=== PATIENT | male | born 1935 | race Caucasian/White ===

== ENCOUNTER → 2016-06-14 | Outpatient (CLI) | payer MEDICARE ==
--- NOTE | 2016-06-14 11:46 | REP ---
Right rib series: Five views including PA chest. History: Contusion. Comparison study December 13, 2001. Findings: A right PA chest x-ray shows no evidence of pneumothorax or hydrothorax. Mediastinum is not widened traumatically. Pleural angles are sharp. The aorta is tortuous. Heart size is normal. Lung arroyo are clear. There is a mild levoconvex curve in the thoracic spine. These findings are unchanged. Multiple views of the right rib cage demonstrate cortical irregularity and step-off. The lateral aspect of the right 10th rib which appears old and the posterior segment of the right 7th rib which is indeterminate. Also noted is a step-off of the posterior aspect of the 10th rib on the right also indeterminate. These are new findings compared to the 2001 prior chest x-ray. No other rib fracture is appreciated. There is some diffuse osteopenia. No bony destructive lesion is seen. Impression: Three fractures involving the right 10th and 7th ribs; question old versus new. Correlation with area of point tenderness and history suggested. No pneumothorax, hydrothorax, atelectasis, or contusion seen. Signed by Chaitanya Doan MD 06/14/2016 02:58 P
--- NOTE | 2016-06-14 11:48 | REP ---
Lumbar spine series: Five views. History: Contusion. Findings: Five views of the lumbar spine show preserved vertebral body heights and normal alignment. No fracture or collapse is seen. There is diffuse degenerative disc disease at each level. An arterial stent is seen in place along the course of the right common iliac artery. There are periaortic clips. No fracture or bony destructive lesion is seen. Psoas margins are symmetric. Mild gaseous distension of the colon is seen. Impression: Degenerative disc disease diffusely. No fracture or collapse seen. Right common iliac artery stent noted. Mild gaseous distension of the colon is noted. Signed by Chaitanya Doan MD 06/14/2016 02:58 P
== END ==
LOC: M WUC 10:52
PROVIDERS: ATTEND Physician Assistant
DX: M51.36 Other intervertebral disc degeneration, lumbar region (principal); S22.41XA Multiple fractures of ribs, right side, initial encounter for closed fracture; X58.XXXA Exposure to other specified factors, initial encounter; Y92.89 Other specified places as the place of occurrence of the external cause; Y93.89 Activity, other specified; Y99.8 Other external cause status

== ENCOUNTER → 2017-06-10 | Outpatient (REF) | payer MEDICARE ==
[2017-06-10 15:40] LABS: BASO # 0.1 10^3/uL (0.0-0.2); BASO % 1.2 % (0.0-1.0); EOS # 0.3 10^3/uL (0.0-0.50); EOS % 3.2 % (0.0-3.0); HEMATOCRIT 39.5 % (42.0-52.0); HEMOGLOBIN 13.7 g/dl (14.0-18.0); IMMATURE GRANULOCYTE % 0.2 % (0-0); LYMPH # 2.4 10^3/uL (1.5-4.5); LYMPH % 24.9 % (24.0-44.0); MEAN CORPUSCULAR HGB CONC 34.7 g/dl (32.0-36.5); MEAN CORPUSCULAR VOLUME 92.3 fl (80.0-96.0); MONO % 10.3 % (0.0-5.0); NEUTROPHILS # 5.8 10^3/uL (1.8-7.7); NEUTROPHILS % 60.2 % (36.0-66.0); PLATELET COUNT, AUTOMATED 247 10^3/uL (150-450); RED BLOOD COUNT 4.28 10^6/uL (4.30-6.10); RED CELL DISTRIBUTION WIDTH 12.8 % (11.5-14.5); WHITE BLOOD COUNT 9.7 10^3/uL (4.0-10.0)
[2017-06-10 15:53] LABS: ALBUMIN 3.5 GM/DL (3.2-5.2); ALBUMIN/GLOBULIN RATIO 1.03 (1.00-1.93); ALKALINE PHOSPHATASE 112 U/L (45-117); ALT/SGPT 19 U/L (12-78); AST/SGOT 23 U/L (7-37); BILIRUBIN,DIRECT 0.2 MG/DL (0.0-0.2); BILIRUBIN,TOTAL 0.5 MG/DL (0.2-1.0); TOTAL PROTEIN 6.9 GM/DL (6.4-8.2)
== END ==
LOC: M LABDRAW1 14:36
DX: M47.896 Other spondylosis, lumbar region (principal)
CPT/HCPCS: 80076

== ENCOUNTER → 2018-09-08 | Outpatient (REF) | payer MEDICARE ==
[2018-09-08 16:14] LABS: CREATININE FOR GFR 1.61 MG/DL (0.70-1.30); GLOMERULAR FILTRATION RATE 44.2 (>35)
== END ==
LOC: M LABDRAW1 15:28
PROVIDERS: ATTEND Physician Assistant
DX: M51.36 Other intervertebral disc degeneration, lumbar region (principal)

== ENCOUNTER → 2019-10-14 | Outpatient (CLI) | payer MEDICARE ==
[2019-10-14 13:12] LABS: HEMOGLOBIN 14.6 g/dl (13.5-17.5); MEAN CORPUSCULAR HEMOGLOBIN 32.6 pg (27.0-33.0); MEAN CORPUSCULAR HGB CONC 35.6 g/dl (32.0-36.5); MEAN CORPUSCULAR VOLUME 91.5 fl (80.0-96.0); PLATELET COUNT, AUTOMATED 220 10^3/uL (150-450); RED BLOOD COUNT 4.48 10^6/uL (4.30-6.10); WHITE BLOOD COUNT 9.7 10^3/uL (4.0-10.0)
[2019-10-14 13:38] LABS: ALBUMIN 3.3 GM/DL (3.2-5.2); BILIRUBIN,TOTAL 0.8 MG/DL (0.2-1.0); CALCIUM LEVEL 8.9 MG/DL (8.8-10.2); CHOLESTEROL RISK RATIO 3.323 (<5); CREATININE FOR GFR 1.33 MG/DL (0.70-1.30); GLOMERULAR FILTRATION RATE 54.8 (>35); POTASSIUM SERUM 3.4 MEQ/L (3.5-5.1); TOTAL PROTEIN 6.6 GM/DL (6.4-8.2)
== END ==
LOC: M LAB 12:09
PROVIDERS: ATTEND Physician Assistant
DX: I11.9 Hypertensive heart disease without heart failure (principal); I25.10 Atherosclerotic heart disease of native coronary artery without angina pectoris; E78.00 Pure hypercholesterolemia, unspecified

== ENCOUNTER → 2020-10-17 | Outpatient (CLI) | payer MEDICARE ==
[2020-10-17 12:52] LABS: HEMATOCRIT 45.5 % (42.0-52.0); HEMOGLOBIN 15.6 g/dl (13.5-17.5); MEAN CORPUSCULAR HEMOGLOBIN 31.5 pg (27.0-33.0); MEAN CORPUSCULAR HGB CONC 34.3 g/dl (32.0-36.5); MEAN CORPUSCULAR VOLUME 91.9 fl (80.0-96.0); PLATELET COUNT, AUTOMATED 254 10^3/uL (150-450); RED BLOOD COUNT 4.95 10^6/uL (4.30-6.10)
[2020-10-17 12:56] LABS: ALBUMIN 3.2 GM/DL (3.2-5.2); BILIRUBIN,TOTAL 0.7 MG/DL (0.2-1.0); CALCIUM LEVEL 9.5 MG/DL (8.8-10.2); CHOLESTEROL RISK RATIO 2.921 (<5); CREATININE FOR GFR 1.64 MG/DL (0.70-1.30); GLOMERULAR FILTRATION RATE 42.9 (>35); POTASSIUM SERUM 3.6 MEQ/L (3.5-5.1); TOTAL PROTEIN 6.7 GM/DL (6.4-8.2)
== END ==
LOC: M WUC 10:22
PROVIDERS: ATTEND Physician Assistant
DX: I11.9 Hypertensive heart disease without heart failure (principal); I25.10 Atherosclerotic heart disease of native coronary artery without angina pectoris; E78.00 Pure hypercholesterolemia, unspecified

== ENCOUNTER 2022-05-25 11:28 | Emergency (ER) | payer MEDICARE ==
[~2022-05-25] VITALS: Ht 170.2 cm; Wt 56.8 kg
[2022-05-25] MEDS ORDERED: ATOR40TA75 (12:13)
[2022-05-25] MEDS ORDERED: TAMS1CAP17 (12:13)
[2022-05-25] MEDS ORDERED: ALBU8.5H (12:13)
[2022-05-25] MEDS ORDERED: TRAM50TA2 (12:13)
[2022-05-25] MEDS ORDERED: ELIQ5TAB (12:13)
[2022-05-25] MEDS ORDERED: PANT40TA29 (12:13)
[2022-05-25] MEDS ORDERED: POTA-151 (12:13)
[2022-05-25] MEDS ORDERED: NITR0.4S14 (12:13)
[2022-05-25] MEDS ORDERED: METO50TA7 (12:13)
[2022-05-25] MEDS ORDERED: SPIR12.9 (12:13)
[2022-05-25] MEDS ORDERED: PRED5TA (12:13)
[2022-05-25] MEDS ORDERED: AMLO1TAB24 (12:13)
[2022-05-25 16:30] LABS: BASO # 0.1 10^3/uL (0.0-0.2); BASO % 0.7 % (0.0-1.0); EOS # 0.1 10^3/uL (0.0-0.5); EOS % 1.2 % (0.0-3.0); HEMATOCRIT 25.2 % (42.0-52.0); HEMOGLOBIN 7.5 g/dl (13.5-17.5); LYMPH # 1.7 10^3/uL (1.5-5.0); LYMPH % 20.3 % (24.0-44.0); MEAN CORPUSCULAR HEMOGLOBIN 24.5 pg (27.0-33.0); MEAN CORPUSCULAR HGB CONC 29.8 g/dl (32.0-36.5); MEAN CORPUSCULAR VOLUME 82.4 fl (80.0-96.0); MONO # 1.1 10^3/uL (0.0-0.8); MONO % 12.9 % (2.0-8.0); NEUTROPHILS # 5.3 10^3/uL (1.5-8.5); NEUTROPHILS % 64.5 % (36.0-66.0); PLATELET COUNT, AUTOMATED 277 10^3/uL (150-450); RED BLOOD COUNT 3.06 10^6/uL (4.30-6.10); WHITE BLOOD COUNT 8.2 10^3/uL (4.0-10.0)
[2022-05-25] MEDS ORDERED: NS 500 ML IV ONE (16:45)
[2022-05-25 17:17] LABS: LIPASE 22 U/L (12-53)
[2022-05-25 17:20] LABS: BILIRUBIN,DIRECT 0.5 MG/DL (<0.4); CPK CREATINE PHOSPHOKINASE 65 U/L (46-171)
[2022-05-25 17:21] LABS: ALBUMIN 3.4 G/DL (3.2-5.2); ALKALINE PHOSPHATASE 94 U/L (46-116); ALT/SGPT 12 U/L (7.0-40); AST/SGOT 20 U/L (<34); BILIRUBIN,TOTAL 1.3 MG/DL (0.3-1.2); CK-MB VALUE MASS < 1.0 NG/ML (<3.6); MB/CK RELATIVE INDEX 1.53 (< OR =4); TOTAL PROTEIN 6.6 G/DL (5.7-8.2)
[2022-05-25] MEDS ORDERED: LIDOCAINE 5% (LIDODERM) PATCH TD ONE (17:35)
[2022-05-25] MEDS ORDERED: ACETAMINOPHEN 325 MG TAB PO ONE (17:35)
[2022-05-25] MEDS ORDERED: LIDO5DIS41 TOP (17:37)
[2022-05-25 17:45] VITALS: BP 131/56
== END 2022-05-25 18:05 | disposition home or self-care (01) ==
LOC: M ED 11:28
DX: S22.080A Wedge compression fracture of T11-T12 vertebra, initial encounter for closed fracture (principal); M50.30 Other cervical disc degeneration, unspecified cervical region; M51.36 Other intervertebral disc degeneration, lumbar region; I49.1 Atrial premature depolarization; I25.2 Old myocardial infarction; J44.9 Chronic obstructive pulmonary disease, unspecified; I10 Essential (primary) hypertension; F17.200 Nicotine dependence, unspecified, uncomplicated; Z79.51 Long term (current) use of inhaled steroids; Z79.899 Other long term (current) drug therapy

== ENCOUNTER 2022-05-31 07:28 | Inpatient (IN) | payer MEDICARE ==
[2022-05-31] VITALS (11 sets, daily range): BP systolic 93–132; BP diastolic 51–64
[~2022-05-31 07:28] MED LIST: ALBU8.5H INH; AMLO1TAB24 PO; ATOR40TA75 PO; ELIQ5TAB PO; LIDO5DIS41 TOP; METO50TA7 PO; NITR0.4S14 SL; PANT40TA29 PO; POTA-151 PO; PRED5TA; SPIR12.9 INH; TAMS1CAP17 PO; TRAM50TA2
[2022-05-31] MEDS ORDERED: PANTOPRAZOLE 40MG VIAL IV ONE (07:45)
[2022-05-31 08:02] LABS: VENOUS BASE EXCESS -12.9 (-2.0-2.0); VENOUS O2 SATURATION 86.5 % (60.0-80.0); VENOUS PARTIAL PRESSURE CO2 29.8 mmHg (38.0-50.0); VENOUS PARTIAL PRESSURE O2 65.8 mmHg (30.0-50.0); VENOUS PH 7.258 UNITS (7.330-7.430); VENOUS TOTAL CO2 13.9 MEQ/L (24.0-28.0)
[2022-05-31 08:08] LABS: BASO # 0.1 10^3/uL (0.0-0.2); BASO % 0.2 % (0.0-1.0); LYMPH # 1.2 10^3/uL (1.5-5.0); LYMPH % 4.3 % (24.0-44.0); MEAN CORPUSCULAR HEMOGLOBIN 24.6 pg (27.0-33.0); MEAN CORPUSCULAR HGB CONC 29.5 g/dl (32.0-36.5); MEAN CORPUSCULAR VOLUME 83.5 fl (80.0-96.0); MONO % 7.5 % (2.0-8.0); NEUTROPHILS % 86.7 % (36.0-66.0); PLATELET COUNT, AUTOMATED 300 10^3/uL (150-450); RED BLOOD COUNT 2.48 10^6/uL (4.30-6.10); WHITE BLOOD COUNT 27.7 10^3/uL (4.0-10.0)
[2022-05-31] MEDS ORDERED: METOPROLOL TART 50 MG TAB PO ONE (08:15)
[2022-05-31 08:21] LABS: INR 2.12; PROTHROMBIN TIME 24.1 SECONDS (12.5-14.5)
[2022-05-31 08:27] LABS: BILIRUBIN,DIRECT 0.5 MG/DL (<0.4)
[2022-05-31 08:29] LABS: THYROXINE (T4) 7.3 UG/DL (4.5-10.9)
[2022-05-31 08:30] LABS: THYROID STIMULATING HORMONE 1.684 uIU/ML (0.55-4.78)
[2022-05-31 08:34] LABS: ALBUMIN 2.8 G/DL (3.2-5.2); BILIRUBIN,TOTAL 1.1 MG/DL (0.3-1.2); CALCIUM LEVEL 8.6 MG/DL (8.3-10.6); CREATININE FOR GFR 2.13 MG/DL (0.70-1.30); GLOMERULAR FILTRATION RATE 31.7 (>35); POTASSIUM SERUM 4.3 MMOL/L (3.5-5.1); TOTAL PROTEIN 5.3 G/DL (5.7-8.2)
[2022-05-31 08:46] LABS: RSV AMPLIFICATION NEGATIVE (NEGATIVE)
[2022-05-31 08:57] LABS: HEMATOCRIT 20.7 % (42.0-52.0); HEMOGLOBIN 6.1 g/dl (13.5-17.5)
[2022-05-31 08:58] LABS: MONO # 2.1 10^3/uL (0.0-0.8)
[2022-05-31] MEDS ORDERED: INDA1.253 PO (11:27)
[2022-05-31] MEDS ORDERED: FOLI0.4T5 PO (11:27)
[2022-05-31] MEDS ORDERED: RA M10TA PO (11:27)
[2022-05-31] MEDS ORDERED: VITA100T14 PO (11:27)
[2022-05-31] MEDS ORDERED: ASPI81TA26 PO (11:27)
[2022-05-31] MEDS ORDERED: VIAC1CHW PO (11:27)
[2022-05-31] MEDS ORDERED: B-12100010 PO (11:27)
[2022-05-31] MEDS ORDERED: FERR325T3 PO (11:31)
[2022-05-31] MEDS ORDERED: PERCOCET PO (11:39)
[2022-05-31] MEDS ORDERED: HOME MED LIST COMPLETE! XX SCH (11:40)
[2022-05-31] MEDS: MORPHINE 2 MG/ML 1ML VIAL IV PRN ×2 (12:32→21:09)
[2022-05-31] MEDS: NICOTINE 21MG/24HR 1 EA TRANSDERMAL TD SCH (13:51)
[2022-05-31 14:20] LABS: MAGNESIUM LEVEL 2.1 MG/DL (1.8-2.4)
[2022-05-31 14:55] LABS: IRON (FE) 90 UG/DL (65-175); TOTAL IRON BINDING CAPACITY 300 UG/DL (250-425)
[2022-05-31 14:57] LABS: FERRITIN 14.5 NG/ML (10.5-307.3)
[2022-05-31 14:58] LABS: VITAMIN B12 LEVEL 1008 PG/ML (211-911)
[2022-05-31 15:00] LABS: FOLATE > 24.00 NG/ML (>5.4)
[2022-05-31 16:00] LABS: HEMATOCRIT 28.3 % (42.0-52.0); MEAN CORPUSCULAR HGB CONC 32.2 g/dl (32.0-36.5); PLATELET COUNT, AUTOMATED 233 10^3/uL (150-450); RED BLOOD COUNT 3.37 10^6/uL (4.30-6.10); WHITE BLOOD COUNT 20.3 10^3/uL (4.0-10.0)
[2022-05-31 16:14] LABS: HEMOGLOBIN 9.1 g/dl (13.5-17.5)
[2022-05-31] MEDS: NS 1,000 ML IV SCH (18:24)
[2022-05-31 19:34] LABS: ALBUMIN 2.7 G/DL (3.2-5.2); BILIRUBIN,TOTAL 3.6 MG/DL (0.3-1.2); CALCIUM LEVEL 8.4 MG/DL (8.3-10.6); GLOMERULAR FILTRATION RATE 34.1 (>35); POTASSIUM SERUM 3.3 MMOL/L (3.5-5.1); TOTAL PROTEIN 5.1 G/DL (5.7-8.2)
[2022-05-31] MEDS ORDERED: GOLYTELY SOLN 4000 ML BTL PO ONE (20:00)
[2022-05-31 20:31] LABS: HEMATOCRIT 27.3 % (42.0-52.0); HEMOGLOBIN 8.8 g/dl (13.5-17.5); MEAN CORPUSCULAR HEMOGLOBIN 26.6 pg (27.0-33.0); MEAN CORPUSCULAR HGB CONC 32.2 g/dl (32.0-36.5); MEAN CORPUSCULAR VOLUME 82.5 fl (80.0-96.0); PLATELET COUNT, AUTOMATED 238 10^3/uL (150-450); RED BLOOD COUNT 3.31 10^6/uL (4.30-6.10); WHITE BLOOD COUNT 16.6 10^3/uL (4.0-10.0)
[2022-05-31] MEDS: PANTOPRAZOLE 40MG VIAL IV SCH (21:04)
[2022-05-31] MEDS: METOPROLOL TART 50 MG TAB PO SCH (21:18)
[2022-06-01] VITALS (7 sets, daily range): BP systolic 116–156; BP diastolic 59–76
[2022-06-01 04:26] LABS: HEMATOCRIT 28.2 % (42.0-52.0); MEAN CORPUSCULAR HEMOGLOBIN 26.4 pg (27.0-33.0); MEAN CORPUSCULAR HGB CONC 31.9 g/dl (32.0-36.5); MEAN CORPUSCULAR VOLUME 82.7 fl (80.0-96.0); PLATELET COUNT, AUTOMATED 240 10^3/uL (150-450); RED BLOOD COUNT 3.41 10^6/uL (4.30-6.10); WHITE BLOOD COUNT 16.9 10^3/uL (4.0-10.0)
[2022-06-01 04:37] LABS: INR 1.24; PROTHROMBIN TIME 15.9 SECONDS (12.5-14.5)
[2022-06-01 04:48] LABS: ALBUMIN 2.8 G/DL (3.2-5.2); CREATININE FOR GFR 1.85 MG/DL (0.70-1.30); GLOMERULAR FILTRATION RATE 37.3 (>35); POTASSIUM SERUM 3.2 MMOL/L (3.5-5.1); TOTAL PROTEIN 5.3 G/DL (5.7-8.2)
[2022-06-01] MEDS: NS 1,000 ML IV SCH ×2 (06:34→20:56)
[2022-06-01] MEDS: KCL 10MEQ/100ML SWI (KRUN) 10 MEQ in IV 1 EA IV SCH ×4 (08:42→14:50)
[2022-06-01] MEDS: NICOTINE 21MG/24HR 1 EA TRANSDERMAL TD SCH (08:43)
[2022-06-01] MEDS: PANTOPRAZOLE 40MG VIAL IV SCH ×2 (08:43→20:54)
[2022-06-01] MEDS: METOPROLOL TART 50 MG TAB PO SCH ×2 (08:43→20:54)
[2022-06-01] MEDS ORDERED: LIDOCAINE 2% 100MG/5ML SDV (FOR ANES.) As Ordered ONE (13:13)
[2022-06-01] MEDS ORDERED: propofoL 200 MG/20 ML VIAL As Ordered ONE (13:13)
[2022-06-01] MEDS ORDERED: fentaNYL 100 MCG/2 ML INJECTION As Ordered ONE (13:13)
[2022-06-01] MEDS ORDERED: PHENYLephrine 500MCG 5ML (100MCG/ML) SYRINGE As Ordered ONE (13:36)
[2022-06-01] MEDS ORDERED: KCL 10MEQ IN STERILE WATER 100ML As Ordered ONE (14:43)
[2022-06-02] MEDS: LEVALBUTEROL 1.25MG 0.5ML CONCENTRATE NEB NEB PRN ×2 (01:53→19:49)
[2022-06-02 04:00] VITALS: BP 141/65
[2022-06-02] MEDS ORDERED: OLANZapine INTRAMUSCULAR 10MG VIAL IM ONE (05:00)
[2022-06-02 07:47] VITALS: BP 161/70
[2022-06-02] MEDS: TIOTROPIUM INHALER/CAPSULE (SPIRIVA) INH SCH (08:00)
[2022-06-02 08:04] LABS: HEMATOCRIT 27.7 % (42.0-52.0); HEMOGLOBIN 8.9 g/dl (13.5-17.5); MEAN CORPUSCULAR HEMOGLOBIN 26.8 pg (27.0-33.0); MEAN CORPUSCULAR HGB CONC 32.1 g/dl (32.0-36.5); MEAN CORPUSCULAR VOLUME 83.4 fl (80.0-96.0); PLATELET COUNT, AUTOMATED 218 10^3/uL (150-450); RED BLOOD COUNT 3.32 10^6/uL (4.30-6.10)
[2022-06-02 08:15] LABS: INR 1.19; PROTHROMBIN TIME 15.4 SECONDS (12.5-14.5)
[2022-06-02 08:16] LABS: PARTIAL THROMBOPLASTIN TIME 28.6 SECONDS (24.8-34.2)
[2022-06-02 08:55] LABS: ALBUMIN 2.5 G/DL (3.2-5.2); BILIRUBIN,TOTAL 1.7 MG/DL (0.3-1.2); CALCIUM LEVEL 7.7 MG/DL (8.3-10.6); CREATININE FOR GFR 1.42 MG/DL (0.70-1.30); GLOMERULAR FILTRATION RATE 50.6 (>35); POTASSIUM SERUM 3.2 MMOL/L (3.5-5.1); TOTAL PROTEIN 4.8 G/DL (5.7-8.2)
[2022-06-02] MEDS: NICOTINE 21MG/24HR 1 EA TRANSDERMAL TD SCH (09:00)
[2022-06-02] MEDS: METOPROLOL TART 50 MG TAB PO SCH ×2 (09:39→20:42)
[2022-06-02] MEDS: PANTOPRAZOLE 40MG VIAL IV SCH (09:39)
[2022-06-02] MEDS ORDERED: FOLIC ACID 1MG TAB PO ONE (12:00)
[2022-06-02] MEDS: POTASSIUM CHLORIDE 10MEQ SR TABLET PO SCH (12:35)
[2022-06-02] MEDS: TAMSULOSIN 0.4 MG CAP PO SCH (13:16)
[2022-06-02] MEDS: ATORVASTATIN 20 MG TAB PO SCH (13:16)
[2022-06-02] MEDS: INDAPAMIDE 1.25MG TABLET PO SCH (13:16)
[2022-06-02] MEDS: PYRIDOXINE 50 MG TAB PO SCH (13:16)
[2022-06-02] MEDS: amLODIPine 5 MG TAB PO SCH (13:17)
[2022-06-02 20:00] VITALS: BP 134/81
[2022-06-02] MEDS: FERROUS SULFATE 325MG TAB PO SCH (20:42)
[2022-06-02] MEDS: PERCOCET 5MG/325MG TAB PO PRN (20:42)
[2022-06-02] MEDS: PANTOPRAZOLE 40MG TAB (PROTONIX) PO SCH (20:42)
[2022-06-02 22:00] VITALS: BP 130/46
[2022-06-03 05:34] LABS: HEMATOCRIT 29.6 % (42.0-52.0); HEMOGLOBIN 9.3 g/dl (13.5-17.5); MEAN CORPUSCULAR HEMOGLOBIN 26.4 pg (27.0-33.0); MEAN CORPUSCULAR HGB CONC 31.4 g/dl (32.0-36.5); MEAN CORPUSCULAR VOLUME 84.1 fl (80.0-96.0); PLATELET COUNT, AUTOMATED 203 10^3/uL (150-450); RED BLOOD COUNT 3.52 10^6/uL (4.30-6.10); WHITE BLOOD COUNT 8.4 10^3/uL (4.0-10.0)
[2022-06-03 05:48] LABS: INR 1.13; PARTIAL THROMBOPLASTIN TIME 28.5 SECONDS (24.8-34.2); PROTHROMBIN TIME 14.7 SECONDS (12.5-14.5)
[2022-06-03 05:59] LABS: ALBUMIN 2.4 G/DL (3.2-5.2); BILIRUBIN,TOTAL 1.1 MG/DL (0.3-1.2); CALCIUM LEVEL 7.8 MG/DL (8.3-10.6); CREATININE FOR GFR 1.41 MG/DL (0.70-1.30); POTASSIUM SERUM 3.7 MMOL/L (3.5-5.1)
[2022-06-03 06:00] VITALS: BP 138/58
[2022-06-03] MEDS: TIOTROPIUM INHALER/CAPSULE (SPIRIVA) INH SCH (08:14)
[2022-06-03] MEDS ORDERED: PANTOPRAZOLE 40MG TAB (PROTONIX) PO SCH (09:00)
[2022-06-03] MEDS: NICOTINE 21MG/24HR 1 EA TRANSDERMAL TD SCH (09:00)
[2022-06-03] MEDS: PYRIDOXINE 50 MG TAB PO SCH (09:49)
[2022-06-03] MEDS: INDAPAMIDE 1.25MG TABLET PO SCH (09:50)
[2022-06-03] MEDS: TAMSULOSIN 0.4 MG CAP PO SCH (09:50)
[2022-06-03] MEDS: ATORVASTATIN 20 MG TAB PO SCH (09:50)
[2022-06-03] MEDS: PERCOCET 5MG/325MG TAB PO PRN (09:50)
[2022-06-03] MEDS: POTASSIUM CHLORIDE 10MEQ SR TABLET PO SCH (09:51)
[2022-06-03] MEDS: METOPROLOL TART 50 MG TAB PO SCH ×2 (09:51→20:23)
[2022-06-03] MEDS: amLODIPine 5 MG TAB PO SCH (09:51)
[2022-06-03] MEDS: PANTOPRAZOLE 40MG TAB (PROTONIX) PO SCH ×2 (09:51→20:23)
[2022-06-03] MEDS: FERROUS SULFATE 325MG TAB PO SCH ×2 (09:51→20:22)
[2022-06-03 20:17] VITALS: BP 136/57
[2022-06-03] MEDS: LEVALBUTEROL 1.25MG 0.5ML CONCENTRATE NEB NEB PRN (23:10)
[2022-06-04] MEDS ORDERED: OLANZapine INTRAMUSCULAR 10MG VIAL IM PRN (02:35)
[2022-06-04] MEDS ORDERED: TEMAZEPAM 7.5 MG CAP PO ONE (03:00)
[2022-06-04 06:00] VITALS: BP 136/86
[2022-06-04] MEDS: TIOTROPIUM INHALER/CAPSULE (SPIRIVA) INH SCH (07:36)
[2022-06-04] MEDS: NICOTINE 21MG/24HR 1 EA TRANSDERMAL TD SCH (09:00)
[2022-06-04 10:28] LABS: INR 1.08; PROTHROMBIN TIME 14.2 SECONDS (12.5-14.5)
[2022-06-04] MEDS: POTASSIUM CHLORIDE 10MEQ SR TABLET PO SCH (10:30)
[2022-06-04] MEDS: ATORVASTATIN 20 MG TAB PO SCH (10:31)
[2022-06-04] MEDS: FERROUS SULFATE 325MG TAB PO SCH ×2 (10:31→20:08)
[2022-06-04] MEDS: amLODIPine 5 MG TAB PO SCH (10:32)
[2022-06-04] MEDS: TAMSULOSIN 0.4 MG CAP PO SCH (10:32)
[2022-06-04] MEDS: METOPROLOL TART 50 MG TAB PO SCH ×2 (10:32→20:09)
[2022-06-04] MEDS: PANTOPRAZOLE 40MG TAB (PROTONIX) PO SCH ×2 (10:33→20:08)
[2022-06-04] MEDS: INDAPAMIDE 1.25MG TABLET PO SCH (10:33)
[2022-06-04] MEDS: PYRIDOXINE 50 MG TAB PO SCH (10:33)
[2022-06-04] MEDS: PERCOCET 5MG/325MG TAB PO PRN (10:33)
[2022-06-04 10:34] LABS: PARTIAL THROMBOPLASTIN TIME 24.7 SECONDS (24.8-34.2)
[2022-06-04 10:42] LABS: HEMATOCRIT 31.1 % (42.0-52.0); HEMOGLOBIN 9.7 g/dl (13.5-17.5); MEAN CORPUSCULAR HEMOGLOBIN 26.6 pg (27.0-33.0); MEAN CORPUSCULAR HGB CONC 31.2 g/dl (32.0-36.5); MEAN CORPUSCULAR VOLUME 85.2 fl (80.0-96.0); PLATELET COUNT, AUTOMATED 217 10^3/uL (150-450); RED BLOOD COUNT 3.65 10^6/uL (4.30-6.10); WHITE BLOOD COUNT 7.6 10^3/uL (4.0-10.0)
[2022-06-04 11:05] LABS: ALBUMIN 2.7 G/DL (3.2-5.2); BILIRUBIN,TOTAL 1.6 MG/DL (0.3-1.2); CALCIUM LEVEL 8.3 MG/DL (8.3-10.6); CREATININE FOR GFR 1.35 MG/DL (0.70-1.30); GLOMERULAR FILTRATION RATE 53.6 (>35); POTASSIUM SERUM 3.9 MMOL/L (3.5-5.1); TOTAL PROTEIN 5.4 G/DL (5.7-8.2)
[2022-06-04] MEDS: LEVALBUTEROL 1.25MG 0.5ML CONCENTRATE NEB NEB PRN (12:35)
[2022-06-04 12:36] VITALS: O2SAT 88
[2022-06-05] MEDS: TEMAZEPAM 15 MG CAP PO PRN ×2 (01:20→23:10)
[2022-06-05 05:51] LABS: HEMATOCRIT 31.5 % (42.0-52.0); HEMOGLOBIN 9.6 g/dl (13.5-17.5); MEAN CORPUSCULAR HEMOGLOBIN 26.2 pg (27.0-33.0); MEAN CORPUSCULAR HGB CONC 30.5 g/dl (32.0-36.5); MEAN CORPUSCULAR VOLUME 85.8 fl (80.0-96.0); PLATELET COUNT, AUTOMATED 194 10^3/uL (150-450); RED BLOOD COUNT 3.67 10^6/uL (4.30-6.10); WHITE BLOOD COUNT 8.7 10^3/uL (4.0-10.0)
[2022-06-05 06:00] VITALS: BP 131/65
[2022-06-05 06:04] LABS: INR 1.07; PROTHROMBIN TIME 14.1 SECONDS (12.5-14.5)
[2022-06-05 06:05] LABS: PARTIAL THROMBOPLASTIN TIME 26.9 SECONDS (24.8-34.2)
[2022-06-05 06:14] LABS: ALBUMIN 2.6 G/DL (3.2-5.2); BILIRUBIN,TOTAL 1.2 MG/DL (0.3-1.2); CALCIUM LEVEL 8.2 MG/DL (8.3-10.6); CREATININE FOR GFR 1.37 MG/DL (0.70-1.30); GLOMERULAR FILTRATION RATE 52.7 (>35); POTASSIUM SERUM 4.1 MMOL/L (3.5-5.1); TOTAL PROTEIN 5.2 G/DL (5.7-8.2)
[2022-06-05] MEDS: TIOTROPIUM INHALER/CAPSULE (SPIRIVA) INH SCH (07:39)
[2022-06-05] MEDS: NICOTINE 21MG/24HR 1 EA TRANSDERMAL TD SCH (09:00)
[2022-06-05] MEDS: PANTOPRAZOLE 40MG TAB (PROTONIX) PO SCH ×2 (09:44→20:30)
[2022-06-05] MEDS: TAMSULOSIN 0.4 MG CAP PO SCH (09:44)
[2022-06-05] MEDS: POTASSIUM CHLORIDE 10MEQ SR TABLET PO SCH (09:44)
[2022-06-05] MEDS: INDAPAMIDE 1.25MG TABLET PO SCH (09:45)
[2022-06-05] MEDS: PYRIDOXINE 50 MG TAB PO SCH (09:45)
[2022-06-05] MEDS: FERROUS SULFATE 325MG TAB PO SCH ×2 (09:45→20:34)
[2022-06-05] MEDS: ATORVASTATIN 20 MG TAB PO SCH (09:45)
[2022-06-05] MEDS: amLODIPine 5 MG TAB PO SCH (09:46)
[2022-06-05] MEDS: METOPROLOL TART 50 MG TAB PO SCH ×2 (09:46→20:34)
[2022-06-05] MEDS: LEVALBUTEROL 1.25MG 0.5ML CONCENTRATE NEB NEB PRN ×2 (14:01→19:27)
[2022-06-05 19:33] VITALS: O2SAT 96
[2022-06-05 19:36] VITALS: O2SAT 95
[2022-06-06 06:00] VITALS: BP 147/72
[2022-06-06] MEDS: TIOTROPIUM INHALER/CAPSULE (SPIRIVA) INH SCH (07:18)
[2022-06-06] MEDS: NICOTINE 21MG/24HR 1 EA TRANSDERMAL TD SCH (09:00)
[2022-06-06] MEDS: POTASSIUM CHLORIDE 10MEQ SR TABLET PO SCH (09:47)
[2022-06-06] MEDS: amLODIPine 5 MG TAB PO SCH (09:48)
[2022-06-06] MEDS: METOPROLOL TART 50 MG TAB PO SCH ×2 (09:48→20:27)
[2022-06-06] MEDS: PANTOPRAZOLE 40MG TAB (PROTONIX) PO SCH ×2 (09:48→20:27)
[2022-06-06] MEDS: INDAPAMIDE 1.25MG TABLET PO SCH (09:48)
[2022-06-06] MEDS: ATORVASTATIN 20 MG TAB PO SCH (09:48)
[2022-06-06] MEDS: FERROUS SULFATE 325MG TAB PO SCH ×2 (09:49→20:27)
[2022-06-06] MEDS: PYRIDOXINE 50 MG TAB PO SCH (09:49)
[2022-06-06] MEDS: TAMSULOSIN 0.4 MG CAP PO SCH (09:49)
[2022-06-06] MEDS: LEVALBUTEROL 1.25MG 0.5ML CONCENTRATE NEB NEB PRN (16:19)
[2022-06-06] MEDS: TEMAZEPAM 15 MG CAP PO PRN (20:29)
[2022-06-07 04:40] VITALS: BP 131/61
[2022-06-07] MEDS: TIOTROPIUM INHALER/CAPSULE (SPIRIVA) INH SCH (07:38)
[2022-06-07] MEDS: PANTOPRAZOLE 40MG TAB (PROTONIX) PO SCH ×2 (08:28→21:17)
[2022-06-07] MEDS: FERROUS SULFATE 325MG TAB PO SCH ×2 (08:28→21:17)
[2022-06-07] MEDS: TAMSULOSIN 0.4 MG CAP PO SCH (08:28)
[2022-06-07] MEDS: NICOTINE 21MG/24HR 1 EA TRANSDERMAL TD SCH (08:29)
[2022-06-07] MEDS: ATORVASTATIN 20 MG TAB PO SCH (08:29)
[2022-06-07] MEDS: PYRIDOXINE 50 MG TAB PO SCH (08:29)
[2022-06-07] MEDS: INDAPAMIDE 1.25MG TABLET PO SCH (08:29)
[2022-06-07] MEDS: amLODIPine 5 MG TAB PO SCH (08:30)
[2022-06-07] MEDS: METOPROLOL TART 50 MG TAB PO SCH ×2 (08:30→21:19)
[2022-06-07] MEDS: POTASSIUM CHLORIDE 10MEQ SR TABLET PO SCH (08:30)
[2022-06-07] MEDS: TEMAZEPAM 15 MG CAP PO PRN (21:17)
[2022-06-08 06:00] VITALS: BP 138/65
[2022-06-08] MEDS: NICOTINE 21MG/24HR 1 EA TRANSDERMAL TD SCH (08:04)
[2022-06-08] MEDS: TIOTROPIUM INHALER/CAPSULE (SPIRIVA) INH SCH (08:12)
[2022-06-08] MEDS: FERROUS SULFATE 325MG TAB PO SCH (08:14)
[2022-06-08] MEDS: TAMSULOSIN 0.4 MG CAP PO SCH (08:15)
[2022-06-08] MEDS: ATORVASTATIN 20 MG TAB PO SCH (08:15)
[2022-06-08] MEDS: INDAPAMIDE 1.25MG TABLET PO SCH (08:16)
[2022-06-08 08:17] VITALS: BP 131/77
[2022-06-08] MEDS: PANTOPRAZOLE 40MG TAB (PROTONIX) PO SCH (08:17)
[2022-06-08] MEDS: METOPROLOL TART 50 MG TAB PO SCH (08:17)
[2022-06-08] MEDS: PYRIDOXINE 50 MG TAB PO SCH (08:17)
[2022-06-08] MEDS: amLODIPine 5 MG TAB PO SCH (08:17)
[2022-06-08] MEDS: POTASSIUM CHLORIDE 10MEQ SR TABLET PO SCH (08:17)
== END 2022-06-08 11:05 | DRG 378 ==
LOC: M ED 07:28 → EDBD 07:28 → M ED INP 10:26 → ENRESERV 12:10 → M PCU 13:00 → M MSPAV 06-02 22:00
PROVIDERS: ADMIT Internal Medicine; ATTEND Internal Medicine
PROC: 30233N1 Transfusion of Nonautologous Red Blood Cells into Peripheral Vein, Percutaneous Approach (ICD-10-PCS; principal; 2022-05-31)
PROC: 0DB68ZX Excision of Stomach, Via Natural or Artificial Opening Endoscopic, Diagnostic (ICD-10-PCS; 2022-06-01)
PROC: 0DJD8ZZ Inspection of Lower Intestinal Tract, Via Natural or Artificial Opening Endoscopic (ICD-10-PCS; 2022-06-01)
PROC: 0W3P8ZZ Control Bleeding in Gastrointestinal Tract, Via Natural or Artificial Opening Endoscopic (ICD-10-PCS; 2022-06-01)
DX: K55.21 Angiodysplasia of colon with hemorrhage (principal); E87.20 Acidosis, unspecified; D68.32 Hemorrhagic disorder due to extrinsic circulating anticoagulants; D62 Acute posthemorrhagic anemia; N17.9 Acute kidney failure, unspecified; I48.91 Unspecified atrial fibrillation; I25.10 Atherosclerotic heart disease of native coronary artery without angina pectoris; N18.30 Chronic kidney disease, stage 3 unspecified; I12.9 Hypertensive chronic kidney disease with stage 1 through stage 4 chronic kidney disease, or unspecified chronic kidney disease; K92.1 Melena; Z79.01 Long term (current) use of anticoagulants; F17.200 Nicotine dependence, unspecified, uncomplicated; Z79.899 Other long term (current) drug therapy; Z79.82 Long term (current) use of aspirin; Z95.2 Presence of prosthetic heart valve; I25.2 Old myocardial infarction; N40.0 Benign prostatic hyperplasia without lower urinary tract symptoms; R29.6 Repeated falls; K31.819 Angiodysplasia of stomach and duodenum without bleeding; D13.1 Benign neoplasm of stomach